=== PATIENT | male | born 1990 | race Caucasian/White ===

== ENCOUNTER 2023-10-09 11:12 | Emergency (ER) | payer OTHER, SELFPAY ==
[2023-10-09 11:21] VITALS: BP 131/95
--- NOTE | 2023-10-09 12:43 | ED.GENMED ---
History of Present Illness
General
Chief Complaint: Back Pain
Source: patient
Exam Limitations: none
Time Seen by Provider: 10/09/23 12:31
Travel History
Have you had any contact with someone who has COVID-19?: No
Do you have any symptoms of coronavirus? Fever > 100 degrees, chills, cough, shortness of breath, sore throat, loss of taste or smell, muscle aches, or headache?: No
History of Present Illness
History of Present Illness:
33-year-old male presents with recurrent lower back pain that radiates down the right leg. This started last evening after wrestling with his kids. He was seen several weeks ago for the same. Was given a Medrol Dosepak then. He denies any bowel
or bladder dysfunction. He denies any perianal anesthesia. No fever. He is ambulatory. He has been using Tylenol which helps some. No other complaints at this time
Past History
Past History
ED Past Medical History: None
ED Past Surgical History: None
Social History
Tobacco: Non-smoker
Phy Exam
Physical Exam
Physical Exam:
General: Well-appearing male no acute respiratory distress
HEENT: Normocephalic atraumatic
Musculoskeletal exam: Mild paraspinous tenderness about the lumbar spine good range of motion bilateral lower extremities
Neurologic exam: Bilateral patellar reflexes 2+ positive straight leg raise right lower extremity reproducing pain down the posterior thigh in the lateral nolen. He has good strength to the lower extremities good sensation.
Vascular: Bilateral lower extremities have good temperature with palpable pulses of dorsal aspect of the feet
Course
Vital Signs
Initial and Last Documented VS:
Initial Vital Signs
Temp Pulse Resp BP Pulse Ox
97.4 F 63 18 131/95 94
10/09/23 11:21 10/09/23 11:21 10/09/23 11:21 10/09/23 11:21 10/09/23 11:21
Last Documented Vital Signs
Temp Pulse Resp BP Pulse Ox
97.4 F 63 18 131/95 94
10/09/23 11:21 10/09/23 11:21 10/09/23 11:21 10/09/23 11:21 10/09/23 11:21
MDM/Problems Addressed
Differential Diagnosis Includes:
Patient with lower back pain and right lower extremity radiculopathy. No fever to suggest infectious source. No red flags to suggest cauda equina. He is ambulatory. He tried Medrol Dosepak. No indication for urgent imaging at this point. Will
start on gabapentin and another several days of prednisone. Will refer to physiatry for further evaluation
*Critical Care Note
Total Time (30-74mins, 75-104mins- exclusive of procedures): Not Applicable
ED Attending Note
-
Portions of this chart may have been created with voice recognition software.� Occasional wrong word or��sound alike� substitutions may have occurred due to the inherent limitations of voice recognition software.
Discharge Plan
Departure
Patient Disposition: Home (Routine Discharge)
Date of Disposition: 10/09/23
Time of Disposition: 12:44
Patient with high blood pressure during this ER visit?: No
Discharge Problem:
Acute lumbar radiculopathy
Prescriptions:
New
gabapentin 300 mg capsule
300 mg PO DAILY Qty: 14 0RF
prednisone 20 mg tablet
40 mg PO DAILY 5 Days Qty: 10 0RF
No Action
finasteride 5 MG tablet
5 mg PO DAILY
methylprednisolone [Methylpred DP] 4 mg tablets,dose pack
See Rx Instructions .ROUTE .COMPLEX Qty: 21 0RF
Rx Instructions:
orally per package directions
Referrals:
Kaden Crowder, DO [Non-Admitting Privileges] -
NONE,* [Family Provider] -
Activity Restrictions/Additional Instructions:
Use prednisone as directed. Use gabapentin as directed. Please return here for worsening symptoms otherwise follow-up with physiatry for further evaluation
Interventions
Interventions:
*Risk Screen - Suicide Last Done: 10/09/23 11:21
*Neglect/Abuse Screening Last Done: 10/09/23 11:21
*ED COVID-19 Vaccine History Last Done: 10/09/23 11:21
== END 2023-10-09 13:15 | disposition home or self-care (01) ==
LOC: EMR 11:12
PROVIDERS: EMERGENCY PHYSICIAN Emergency Medicine
DX: M54.16 Radiculopathy, lumbar region (principal); X50.1XXA Overexertion from prolonged static or awkward postures, initial encounter
CPT/HCPCS: 99283

== ENCOUNTER 2025-01-08 23:20 | Emergency (ER) | payer OTHER, SELFPAY ==
[2025-01-08 23:29] VITALS: BP 160/94
--- NOTE | 2025-01-09 00:39 | ED.GENMED ---
History of Present Illness
<Merary Cano PA-C - Last Filed: 01/09/25 06:42>
General
Chief Complaint: Hallucinations
Source: patient
Exam Limitations: none
Time Seen by Provider: 01/09/25 00:38
Nursing documentation reviewed up to this point in time: agreed with
History of Present Illness
History of Present Illness:
This is a 35-year-old male with a past medical history of sciatica, gastritis who presents emergency department today with concerns of new onset auditory hallucinations for the past few hours. Patient states that this started after using meth a few
hours ago. Patient states that he will occasionally use methamphetamines from time to time and has never had hallucinations. Patient also states that he has had intermittent headaches as well. He states that the voices are telling him bad things
about himself however are not encouraging him to hurt himself. Patient states that he does not have any suicidal or homicidal ideations. He does not have any recent head or neck trauma. He denies any chest pain or shortness of breath, abdominal
pain. Denies any nausea or vomiting. He denies any past history of psychiatric illness. He denies any visual or tactile hallucinations.
Past History
<Merary Cano PA-C - Last Filed: 01/09/25 06:42>
Past History
ED Past Medical History: None
ED Past Surgical History: None
Social History
Tobacco: Non-smoker
Review of Systems
<Merary Cano PA-C - Last Filed: 01/09/25 06:42>
Review of Systems
All Other Systems: ROS reviewed and negative except as documented in HPI and ROS
Phy Exam
<Merary Cano PA-C - Last Filed: 01/09/25 06:42>
Physical Exam
Physical Exam:
General: Patient is well appearing and in no acute distress; non-toxic
Skin: Warm and dry, no rashes or lesions
Head: Normocephalic, atraumatic
Eyes: Sclera non-icteric. EOMs intact.
Cardiac: Tachycardia noted, otherwise regular rhythm, no murmurs
Peripheral Vascular: No lower extremity swelling or edema
Pulm: Normal respiratory effort, no wheezes, rales, or rhonchi
Abdomen: No abdominal tenderness to palpation
Neuro: CN II-XII intact, no focal neurologic deficits.
Psychiatric: Appropriate mood and affect. Good insight and judgement.
Course
<Merary Cano PA-C - Last Filed: 01/09/25 06:42>
Orders/Labs/Results
Orders:
Orders
01/08/25 23:33
Crisis Consult Urgent
Reason for Consult: HALLUCINATIONS SUBSTANCE ABUSE
01/09/25 01:01
CT Head W/o Iv Contrast Urgent
Comment:
Reason For Exam: new onset hallucinations, headache
0.9% Sodium Chloride 1000 ml [Nss] 1,000 ml IV BOLUS
01/09/25 01:03
Lorazepam [Ativan] 1 mg PO NOW STA
01/09/25 01:23
observation [ED Special Safety Observation] ONCE
Observation level: Intermittent Observation
01/09/25 01:31
Alcohol Urgent
B12 [Vitamin B12] Urgent
Complete Blood Count/With Diff Urgent
Comprehensive Metabolic Panel Urgent
Abnormal Lab Results
01/09/25
01:31
Absolute Monos (auto) 0.7 H 10^3/uL
(0.1-0.6)
Monocytes % 10.3 H %
(1.7-9.3)
BUN 23 H mg/dl
(9-20)
Glucose 125 H mg/dl
(70-99)
01/09/25 01:31
01/09/25 01:31
Vital Signs
Initial and Last Documented VS:
Initial Vital Signs
Temp Pulse Resp BP Pulse Ox
98.3 F 92 20 160/94 98
01/08/25 23:29 01/08/25 23:29 01/08/25 23:29 01/08/25 23:29 01/08/25 23:29
Last Documented Vital Signs
Temp Pulse Resp BP Pulse Ox
98.3 F 65 18 127/85 98
01/08/25 23:29 01/09/25 04:19 01/09/25 04:19 01/09/25 04:19 01/09/25 04:19
<Apolinar Cat, DO - Last Filed: 01/09/25 04:13>
Orders/Labs/Results
Orders:
Orders
01/08/25 23:33
Crisis Consult Urgent
Reason for Consult: HALLUCINATIONS SUBSTANCE ABUSE
01/09/25 01:01
CT Head W/o Iv Contrast Urgent
Comment:
Reason For Exam: new onset hallucinations, headache
0.9% Sodium Chloride 1000 ml [Nss] 1,000 ml IV BOLUS
01/09/25 01:03
Lorazepam [Ativan] 1 mg PO NOW STA
01/09/25 01:23
observation [ED Special Safety Observation] ONCE
Observation level: Intermittent Observation
01/09/25 01:31
Alcohol Urgent
B12 [Vitamin B12] Urgent
Complete Blood Count/With Diff Urgent
Comprehensive Metabolic Panel Urgent
Abnormal Lab Results
01/09/25
01:31
Absolute Monos (auto) 0.7 H 10^3/uL
(0.1-0.6)
Monocytes % 10.3 H %
(1.7-9.3)
BUN 23 H mg/dl
(9-20)
Glucose 125 H mg/dl
(70-99)
01/09/25 01:31
01/09/25 01:31
Vital Signs
Initial and Last Documented VS:
Initial Vital Signs
Temp Pulse Resp BP Pulse Ox
98.3 F 92 20 160/94 98
01/08/25 23:29 01/08/25 23:29 01/08/25 23:29 01/08/25 23:29 01/08/25 23:29
Last Documented Vital Signs
Temp Pulse Resp BP Pulse Ox
98.3 F 65 18 127/85 98
01/08/25 23:29 01/09/25 04:19 01/09/25 04:19 01/09/25 04:19 01/09/25 04:19
<Merary Cano PA-C - Last Filed: 01/09/25 06:42>
MDM/Problems Addressed
Differential Diagnosis Includes:
Differentials include schizoaffective disorder, drug-induced hallucination/methamphetamine use, brain tumor, electrolyte derangement/vitamin deficiency
MDM/Problems Addressed:
This is a 35-year-old male with a past medical history of sciatica, gastritis who presents emergency department today with concerns of new onset auditory hallucinations for the past few hours. Patient states that this started after using meth a few
hours ago. Patient is never had this before. On physical exam, patient is well-appearing in no acute distress, he has no focal neurologic deficits. Considering this has been the first time patient started develop loose nations, medical workup
initiated, CBC and CMP unremarkable. Patient was given IV fluids and a dose of Ativan which seemed to improve his symptoms. Patient medically clear for the further treatment at this time. No indication for involuntary inpatient psychiatric
treatment, patient was given resources for outpatient psychiatry, patient does use methamphetamines and did request be CARES evaluation, be cared for seen by patient and patient was set up to go to rehab, he did someone drive him to the rehab
facility. Patient stable for discharge.
Chronic conditions affecting care:
N/A
<Merary Cano PA-C - Last Filed: 01/09/25 06:42>
*Pulse Oximetry
Patient hypoxic: no
*Critical Care Note
Total Time (30-74mins, 75-104mins- exclusive of procedures): Not Applicable
Data Reviewed
Review of Other/Old Records Reveals: Records (Reviewed ER physician documentation from 05/27/2024 patient seen for lumbar radiculopathy)
ED Attending Note
<Merary Cano PA-C - Last Filed: 01/09/25 06:42>
-
Portions of this chart may have been created with voice recognition software.� Occasional wrong word or��sound alike� substitutions may have occurred due to the inherent limitations of voice recognition software.
<Apolinar Cat DO - Last Filed: 01/09/25 04:13>
ED Attending Note
Patient seen and examined by attending physician: Yes
ED Attending Note:
35-year-old male seen by RAUL hearing voices and hallucinating. Wandering in the [place]. Patient experiencing hallucinations and hearing voices in his head. Patient explicitly denies suicidal homicidal ideation, intent, or plan. Patient requests
treatment for his drug use. Patient seen by Kam. Patient to be placed. Patient seen in conjunction with the PA. I have reviewed and agree with her history and treatment plan. Patient is alert and oriented in no acute distress at time of my
exam. Heart is regular rate and rhythm. Lungs are clear to auscultation bilaterally. Mentating appropriately.
Discharge Plan
Departure
Patient Disposition: Home (Routine Discharge)
Date of Disposition: 01/09/25
Time of Disposition: 04:11
Patient with high blood pressure during this ER visit?: Yes
Condition: Good
Discharge Problem:
Methamphetamine abuse, Hallucination, Auditory hallucinations, Drug use
Prescriptions:
No Action
finasteride 5 MG tablet
5 mg PO DAILY
methylprednisolone [Methylpred DP] 4 mg tablets,dose pack
See Rx Instructions .ROUTE .COMPLEX Qty: 21 0RF
Rx Instructions:
orally per package directions
gabapentin 300 mg capsule
300 mg PO DAILY Qty: 14 0RF
prednisone 20 mg tablet
40 mg PO DAILY 5 Days Qty: 10 0RF
Referrals:
NONE,* [Family Provider] -
Activity Restrictions/Additional Instructions:
Your CBC and CMP blood work is unremarkable. Your vitamin B12 level was within normal range. Your CT scan of the head showed no acute intracranial abnormality.
PLEASE RETURN EMERGENCY DEPARTMENT SHOULD YOU DEVELOP CHEST PAIN, SHORTNESS OF BREATH, LIGHTHEADEDNESS, DIZZINESS, SUICIDAL THOUGHTS FALLS, OR ANY OTHER SYMPTOMS WORRISOME TO YOU.
Interventions
Interventions:
*Risk Screen - Suicide Last Done: 01/08/25 23:29
*Neglect/Abuse Screening Last Done: 01/08/25 23:29
*Nursing Disposition Last Done: 01/09/25 04:34
ED- Neurological Assessment Last Done: 01/09/25 00:00
ED-Psychological Assessment Last Done: 01/09/25 00:00
Discharge Date and Time
Discharge Date/Time: 01/09/25 04:35
Print Language: URDU
[2025-01-09] MEDS: NSS 1000 IV (01:32)
[2025-01-09] MEDS: ATIVAN 1 MG PO (01:34)
[2025-01-09 01:38] LABS: % Basophils 0.6 % (0-2); % Eosinophils 4.9 % (0-6); % Immature Granulocytes 0.2 % (0-0.5); % Monocytes 10.3 % (1.7-9.3); Absolute Eosinophils 0.3 10^3/uL (0-0.7); Absolute Lymphocytes 1.6 10^3/uL (1.2-3.4); Absolute Monocytes 0.7 10^3/uL (0.1-0.6); Absolute Neutrophils 3.8 10^3/uL (1.4-6.5); Hematocrit 39.3 % (39.0-52.0); Hemoglobin 14.3 g/dL (13.0-18.0); Mean Corp Hgb Conc. 36.4 g/dL (33.0-37.0); Mean Corpuscular Hgb 29.9 pg (27.0-31.0); Mean Corpuscular Volume 82.2 fL (80.0-94.0); Nucleated Red Blood Cells % 0 % (-); Platelet Count 291 10^3/uL (130-400); Red Blood Cell Count 4.78 10^6/uL (4.70-6.10); Red Cell Dist. Width 13.2 % (11.5-14.5); White Blood Cell Count 6.4 10^3/uL (4.8-10.8)
[2025-01-09 01:55] LABS: AST (SGOT) 24 U/L (17-59); Albumin 4.1 g/dl (3.5-5.0); Alkaline Phosphatase 82 U/L (38-126); Blood Urea Nitrogen 23 mg/dl (9-20); Calcium 9.1 mg/dl (8.4-10.2); Carbon Dioxide 27 mmol/L (22-30); Chloride 105 mmol/L (98-107); Glucose 125 mg/dl (70-99); Potassium 3.5 mmol/L (3.5-5.1); Sodium 140 mmol/L (135-145); Total Bilirubin 0.7 mg/dl (0.2-1.3); Total Protein 6.6 g/dl (6.3-8.2); eGFR > 60.00
[2025-01-09 02:04] LABS: ALT (SGPT) 22 U/L (0-50)
[2025-01-09 02:11] LABS: Alcohol None Detected
[2025-01-09 02:46] LABS: Vitamin B12 569 pg/ml (239-931)
[2025-01-09 04:19] VITALS: BP 127/85
== END 2025-01-09 04:35 | disposition home or self-care (01) ==
LOC: EMR 23:20
PROVIDERS: Physician Assistant; EMERGENCY PHYSICIAN Student in an Organized Health Care Education/Training Program
DX: F15.10 Other stimulant abuse, uncomplicated (principal); R44.0 Auditory hallucinations; R51.9 Headache, unspecified
CPT/HCPCS: 99284; 96360; 70450; 80053; 82077; 82607; 85025